=== PATIENT | male | born 1995 | race Hispanic/Latino ===

== ENCOUNTER 2021-07-10 17:50 | Emergency (ER) | payer BC, SELFPAY ==
[2021-07-10] MEDS ORDERED: Fluorescein Opthalmic Strip ONE (18:52)
[2021-07-10] MEDS ORDERED: Proparacaine 0.5% Opth 15 ML BOT ONE (18:52)
[2021-07-10] MEDS ORDERED: Boostrix 0.5 ML (Tdap) VIAL ONE (18:59)
== END 2021-07-10 20:30 | disposition home or self-care (01) ==
LOC: ERS 17:50
DX: T15.01XA Foreign body in cornea, right eye, initial encounter (principal)
CPT/HCPCS: 65220; 90715